=== PATIENT | female | born 1945 | race Caucasian/White ===

== ENCOUNTER 2017-07-24 16:59 | Emergency (ER) | payer MEDICARE, SELFPAY ==
[2017-07-24 17:32] VITALS: BP 136/76; PULSE 84; RESP 15; TEMP 37.1; O2SAT 97; BMI 33.5
[2017-07-24 18:05] VITALS: BP 139/60; PULSE 81; RESP 18; O2SAT 96
--- NOTE | 2017-07-24 18:37 | PC.NURSE ---
Attempt x1 for IV start. Unsuccessful
--- NOTE | 2017-07-24 18:41 | ED.GENADULT ---
HPI - General Adult General Chief complaint: Abdominal Pain Stated complaint: ABDOMINAL DISCOMFORT Time Seen by Provider: 07/24/17 18:15 Source: patient Mode of arrival: ambulatory Limitations: no limitations History of Present Illness HPI narrative: 72-year-old otherwise healthy female here for evaluation of generalized malaise and not feeling well. She states that approximately 10 days ago she had an episode of nausea and vomiting. She states that she took some nausea medication which only improved her symptoms slightly. She states that since then though symptoms have resolved however she did state that she then progressed and having constipation issues. She saw her primary provider who did some ?lab work ?and told the patient that her ?liver tests ?were elevated and put in a consult for have a right upper quadrant ultrasound. His right upper quadrant ultrasound was not scheduled for another couple weeks and the patient was still not feeling very well and so she was told by her primary doctor to come to the emergency department to have an ultrasound of her gallbladder. Related Data Home Medications Medication Instructions Recorded Confirmed hydrochlorothiazide 50 mg PO Q DAY #0 12/17/11 07/24/17 calcium carbonate-vitamin D3 1 cap PO QPM 06/30/17 07/24/17 [Calcium 600 + D(3)] calcium carbonate-vitamin D3 2 cap PO QDAY 06/30/17 07/24/17 [Calcium 600 + D(3)] cholecalciferol (vitamin D3) 2,000 unit PO QPM 06/30/17 07/24/17 [Vitamin D3] omeprazole 20 mg PO BID 06/30/17 07/24/17 simvastatin 20 mg PO QPM 06/30/17 07/24/17 sulfasalazine 2 tab PO BID 06/30/17 07/24/17 potassium chloride 10 meq PO DAILY 07/24/17 07/24/17 Allergies Allergy/AdvReac Type Severity Reaction Status Date / Time oxycodone AdvReac Verified 07/24/17 17:32 unknown antibiotic AdvReac Uncoded 07/24/17 17:32 Review of Systems Constitutional Denies chills, Denies fever(s), Denies lethargy and Denies weakness Cardiovascular Denies chest pain, Denies irregular heart rhythm, Denies lightheadedness, Denies palpitations, Denies dyspnea, Denies dyspnea on exertion and Denies orthopnea Respiratory Denies cough, Denies dyspnea, Denies dyspnea on exertion and Denies wheezing Gastrointestinal Gastrointestinal: Reports abdominal pain (One episode of left upper quadrant abdominal pain approximately 10 days ago), Denies bloating, Reports constipation, Denies diarrhea, Reports nausea (Has now resolved) and Reports vomiting (Has now resolved) Genitourinary Denies hematuria, Denies flank pain, Denies urinary incontinence and Denies urinary urgency Musculoskeletal Denies back pain, Denies muscle weakness, Denies numbness and Denies tingling Integumentary/Breasts Denies pruritus, Denies erythema, Denies rash and Denies wounds Neurologic Denies numbness, Denies tingling and Denies weakness Endocrine Denies palpitations Hematologic/Lymphatic Denies easy bruising Allergic/Immunologic Denies wheezing [facility] Medical History Colitis (Chronic) Edema of left lower extremity (Chronic) PENNY (obstructive sleep apnea) (Chronic) Osteoarthritis (Chronic) Surgical History History of total bilateral knee replacement (Resolved) Family History Mother Atrial fibrillation Social History Smoking Status: Never smoker Exam Initial Vital Signs Initial Vital Signs: Vital Signs Temperature 98.8 F 07/24/17 17:32 Pulse Rate 84 07/24/17 17:32 Respiratory Rate 15 07/24/17 17:32 Blood Pressure 136/76 H 07/24/17 17:32 Pulse Oximetry 97 07/24/17 17:32 Const General: cooperative and well developed Nutritional Appearance: well nourished Orientation: alert, awake, oriented x3 and not confused Resp Effort & Inspection: normal respiratory effort, able to speak in complete sentences, no respiratory distress and no use of accessory muscles Auscultation: clear to auscultation bilaterally, no rales, no rhonchi and no wheezes Cardio Rate: regular rate Rhythm: regular rhythm Heart Sounds: no click, no gallops, no murmurs and no rubs Pulses: normal peripheral pulses GI Inspection: non-distended Palpation: soft, no hepatosplenomegaly, No guarding, No pulsatile mass and No tender Auscultation: normal bowel sounds Back/Spine/Pelvis Back: No CVA tenderness Skin General: no rashes or lesions noted, No jaundice and No petechiae Neuro General: alert, oriented x3, gait normal and no focal motor deficits Speech: speech normal Extrem General: full ROM, no clubbing, cyanosis or edema, no pedal edema and no calf tenderness Course Orders Ordered: ED Orders 07/24/17 17:49 EKG-12 Lead Stat 07/24/17 18:44 Complete Blood Count AUTO DIFF Stat Comprehensive Metabolic Panel Stat Ictotest Urine Stat Lipase Stat 07/24/17 19:22 US abdomen complete Stat 07/24/17 19:35 Lactate (Lactic Acid) Stat 07/24/17 19:42 Troponin I Stat 07/24/17 20:31 CT chest abd pel w con Stat 07/24/17 21:00 Urinalysis and Microscopic Stat Discontinued Medications Sodium Chloride (Normal Saline 0.9%) 1,000 mls @ 1,000 mls/hr IV BOLUS ONE Stop: 07/24/17 21:33 Last Infusion: 07/24/17 22:25 Dose: 1,000 mls/hr Admin: 07/24/17 21:00 Dose: 1,000 mls/hr Vital Signs - 8 hr 07/24/17 20:09 07/24/17 21:55 Pulse Rate 82 80 Respiratory Rate 26 H 23 Blood Pressure [Left Arm] 107/71 157/89 H Pulse Oximetry 99 Medical Decision Making [facility] Narrative Medical decision making narrative: Patient with an elevated lipase however physical exam is not consistent with pancreatitis. Her right upper quadrant ultrasound shows a normal gallbladder however did reveal a mass in the pancreas and concerns for lesions in the liver. CT scan of the chest abdomen pelvis confirmed a mass around the head of the pancreas with what appears to be metastatic lesions to the liver and a left-sided pleural effusion. I discussed the case with Dr. Isaac who is on-call for the patient's primary care provider group. We discussed the indications for admission to the hospital this evening versus is obtaining biopsies in further workup as an outpatient. The patient is stable here in the ER. The decision after this conversation was to have the patient follow up as an outpatient. He states that the group will call the patient tomorrow for acute follow-up. I did discuss the CT scan and ultrasound findings with the patient and then her who came later. I did inform them of the concerns for pancreatic cancer. Informed them that we do need a biopsy to confirm this diagnosis however the CT scan and the ultrasound are very concerning for this diagnosis. She was given return precautions. She was given instructions with regard to symptoms. Patient and her expressed understanding and agreement with plan. Lab Data Result diagrams: 07/24/17 18:44 07/24/17 18:44 Lab Results 07/24/17 07/24/17 07/24/17 Range/Units 18:44 18:44 18:44 WBC 14.4 H (4.5-11.0) X10^3/uL RBC 3.90 L (4.0-5.2) X10^6/uL Hgb 11.6 L (12.0-16.0) g/dL Hct 35.5 L (36-46) % MCV 91.0 (80-100) fL MCH 29.6 (26-34) PG MCHC 32.5 (30-36) % RDW 15.1 H (11.6-14.8) % Plt Count 157 (150-400) X10^3/uL Neut % (Auto) 68.6 (50-75) % Lymph % (Auto) 16.1 L (25-40) % Wilbarger % (Auto) 12.0 (3-14) % Eos % (Auto) 2.4 (2-4) % Baso % (Auto) 0.9 (0-2) % Neut # (Auto) 9900 H (2141-6674) /uL Sodium 137 (137-145) mmol/L Potassium 3.6 (3.4-5.1) mmol/L Chloride 98 (98-107) mmol/L Carbon Dioxide 32 (22-32) mmol/L BUN 14 (7-17) mg/dL Creatinine 0.70 (0.52-1.04) mg/dL Estimated GFR > 60.0 (>60) mL/min BUN/Creatinine Ratio 20.0 (6-22) Glucose 125 H (80-110) mg/dL Lactate (0.7-2.1) mmol/L Calcium 10.2 (8.4-10.2) mg/dL Total Bilirubin 1.0 (0.2-1.3) mg/dL AST 89 H (14-36) IU/L ALT 37 (9-52) IU/L Alkaline Phosphatase 490 H (38-126) U/L CK-MB (CK-2) Troponin I (0.01-0.034) ng/mL Total Protein 6.8 (6.3-8.2) g/dL Albumin 3.4 L (3.5-5.0) g/dL Globulin 3.4 (1.7-4.1) g/dL Albumin/Globulin Ratio 1.0 (1.0-2.8) Lipase 706 H (23-300) U/L Urine Color Yellow Urine Appearance Clear Urine pH 7.0 (4.5-8.0) Ur Specific Hopkins 1.015 (1.000-1.035) Urine Protein 1+ H (Negative) Urine Glucose (UA) Negative (Normal) g/dL Urine Ketones Trace H (NEGATIVE) Urine Occult Blood Negative (Negative) Urine Nitrate Negative (Negative) Urine Bilirubin 1+ H (NEGATIVE) Urine Ictotest Positive H (Negative) Urine Urobilinogen 4.0 H (0.2) E.U./dL Ur Leukocyte Esterase Negative (NEGATIVE) Urine RBC None seen (0-5/HPF) Urine WBC None seen (0-5/HPF) Urine Bacteria None seen (None) Ur Culture Indicated? Cult not indicated Micro UA Comment Microscopic normal 07/24/17 07/24/17 Range/Units 19:35 19:42 WBC (4.5-11.0) X10^3/uL RBC (4.0-5.2) X10^6/uL Hgb (12.0-16.0) g/dL Hct (36-46) % MCV (80-100) fL MCH (26-34) PG MCHC (30-36) % RDW (11.6-14.8) % Plt Count (150-400) X10^3/uL Neut % (Auto) (50-75) % Lymph % (Auto) (25-40) % Wilbarger % (Auto) (3-14) % Eos % (Auto) (2-4) % Baso % (Auto) (0-2) % Neut # (Auto) (9286-0338) /uL Sodium (137-145) mmol/L Potassium (3.4-5.1) mmol/L Chloride (98-107) mmol/L Carbon Dioxide (22-32) mmol/L BUN (7-17) mg/dL Creatinine (0.52-1.04) mg/dL Estimated GFR (>60) mL/min BUN/Creatinine Ratio (6-22) Glucose (80-110) mg/dL Lactate 2.2 H (0.7-2.1) mmol/L Calcium (8.4-10.2) mg/dL Total Bilirubin (0.2-1.3) mg/dL AST (14-36) IU/L ALT (9-52) IU/L Alkaline Phosphatase (38-126) U/L CK-MB (CK-2) Cancelled Troponin I < 0.012 (0.01-0.034) ng/mL Total Protein (6.3-8.2) g/dL Albumin (3.5-5.0) g/dL Globulin (1.7-4.1) g/dL Albumin/Globulin Ratio (1.0-2.8) Lipase (23-300) U/L Urine Color Urine Appearance Urine pH (4.5-8.0) Ur Specific Hopkins (1.000-1.035) Urine Protein (Negative) Urine Glucose (UA) (Normal) g/dL Urine Ketones (NEGATIVE) Urine Occult Blood (Negative) Urine Nitrate (Negative) Urine Bilirubin (NEGATIVE) Urine Ictotest (Negative) Urine Urobilinogen (0.2) E.U./dL Ur Leukocyte Esterase (NEGATIVE) Urine RBC (0-5/HPF) Urine WBC (0-5/HPF) Urine Bacteria (None) Ur Culture Indicated? Micro UA Comment Imaging Data Abdominal ultrasound: Radiologist's impression: PROCEDURE: US ABDOMEN COMPLETE INDICATIONS: Right upper quadrant pain concern for gallbladder TECHNIQUE: Real-time scanning was performed of the abdominal and retroperitoneal organs, with image documentation. COMPARISON: None. FINDINGS: Liver: There are innumerable nodules throughout the liver. Gallbladder: No cholelithiasis. Normal gallbladder wall thickness. No pericholecystic fluid. Negative sonographic Hanson's sign. Biliary ducts: Intrahepatic bile ducts are non-dilated. Extrahepatic bile duct caliber measures 6 mm. Normal is 6-7 mm or less in diameter, or 10 mm or less post-cholecystectomy. Pancreas: There is a 3.3 x 1.9 x 2.7 cm hypoechoic pancreatic mass. Spleen: Spleen is normal in size and homogeneous in echotexture. Kidneys: Kidneys are normal in size and echotexture. Right kidney measures 13.2 cm long; left kidney measures 12.7 cm long. No hydronephrosis or nephrolithiasis. No solid masses. There is a 5.9 cm right renal cyst. Aorta: Obscured Iliacs: Obscured. IVC: Obscured. Miscellaneous: No free abdominal fluid. IMPRESSION: Pancreatic mass with innumerable hepatic nodules most consistent with metastatic pancreatic adenocarcinoma. Dictated by: Padilla Mathis M.D. on 07/24/2017 at 21:16 CT chest abdomen pelvis: Radiologist's impression: PROCEDURE: CT CHEST ABD PEL W CON INDICATIONS: US show pancreatic mass with liver findings TECHNIQUE: After the administration of intravenous contrast, 5 mm thick sections acquired from the lung apices to the symphysis. 2.5 mm thick coronal and sagittal reformats were acquired. Additional 7 mm thick coronal maximum intensity projection (MIP) reformats acquired through the lungs. Optional 10-minute delayed imaging may be performed from the kidneys to the bladder. For radiation dose reduction, the following was used: automated exposure control, adjustment of mA and/or kV according to patient size. COMPARISON: None. FINDINGS: Image quality: Excellent. CHEST: Lungs: Small left-sided pleural effusion with left basilar atelectasis/infiltrate. Otherwise the lungs are clear. Central and peripheral airways are patent where seen. Mediastinum: Heart size is normal. No pericardial effusion. Thoracic aorta and pulmonary arteries demonstrate normal size and enhancement. No mediastinal or hilar adenopathy. Esophagus is normal in caliber. Chest wall: No rib fractures. No axillary or supraclavicular adenopathy. Thyroid gland is normal. ABDOMEN: Solid organs: Innumerable masses throughout the liver. There is a 2.3 cm pancreatic body mass with dilatation of the pancreatic duct and atrophy of pancreatic parenchyma in the more proximal pancreatic tail. 1 cm hypodense splenic nodule. 2 cm right adrenal nodule. Left adrenal gland and kidney are normal. Large benign right renal cyst otherwise the right kidney is normal. Peritoneum and bowel: The stomach is decompressed causing a degree of wall thickening. No free fluid or air. Unenhanced bowel loops demonstrate normal wall thickness and caliber. Nodes and vessels: Prominent nahum hepatis lymph nodes. Aorta and inferior vena cava are normal in size and enhancement. Miscellaneous: No ventral hernias. PELVIS: Genitourinary: Bladder wall thickness is normal. Uterus is present. Miscellaneous: No inguinal hernias or adenopathy. Bones: Pelvic ring and hip joints appear intact. No vertebral compression fractures. There is a 13 mm Low-density in the inferior L5 vertebral body adjacent to marked degenerative change more consistent with a sequelae of degenerative change than with metastatic disease. . IMPRESSION: 1. Pancreatic body mass with atrophy of the pancreatic tail and dilatation of the pancreatic duct consistent with malignancy. Innumerable hepatic nodules. Consider ultrasound-guided liver biopsy. 2. Suspicious right renal and splenic nodules. 3. Prominent upper abdominal lymph nodes are also suspicious for metastatic disease. 4. Small left-sided pleural effusion with left basilar atelectasis or infiltrate. Dictated by: Padilla Mathis M.D. on 07/24/2017 at 21:21 Discharge Plan Departure Patient Disposition: Home, Self-Care Clinical Impression: Pancreatic mass Discharge Date/Time: 07/24/17 23:17 Interventions: ED Discharge Assessment Last Done: 07/24/17 23:17 Instructions: DI for Pancreaticobiliary Cancer Activity Restrictions/Additional Instructions: [facility] will contact you tomorrow to discuss further workup of the findings today. If he do not hear from them by noon please call the office. I discussed her case with Dr. Isaac. Return to the emergency department for any new or worsening symptoms Prescriptions: No Action hydrochlorothiazide 50 MG tablet 50 mg PO Q DAY Qty: 0 RF: 0 potassium chloride 10 mEq tablet extended release 10 meq PO DAILY RF: 0 sulfasalazine 500 mg Tablet 2 tab PO BID RF: 0 simvastatin 20 mg Tablet 20 mg PO QPM RF: 0 omeprazole 20 mg capsule,delayed release(DR/EC) 20 mg PO BID RF: 0 calcium carbonate-vitamin D3 [Calcium 600 + D(3)] 600 mg calcium- 200 unit Capsule 1 cap PO QPM RF: 0 calcium carbonate-vitamin D3 [Calcium 600 + D(3)] 600 mg calcium- 200 unit Capsule 2 cap PO QDAY RF: 0 cholecalciferol (vitamin D3) [Vitamin D3] 2,000 unit Capsule 2,000 unit PO QPM RF: 0
[2017-07-24 18:55] LABS: Add Manual Diff / Slide Review NO; Basophils Percent Auto 0.9 % (0-2); Eosinophils Percent Auto 2.4 % (2-4); Hematocrit 35.5 % (36-46); Hemoglobin 11.6 g/dL (12.0-16.0); Lymphocytes Percent Auto 16.1 % (25-40); Mean Corpuscular HGB Conc 32.5 % (30-36); Mean Corpuscular Hemoglobin 29.6 PG (26-34); Neutrophils Absolute Auto 9900 /uL (3000-5900); Neutrophils Percent Auto 68.6 % (50-75); Platelet Count 157 X10^3/uL (150-400); Red Cell Distribution Width 15.1 % (11.6-14.8); White Blood Cell Count 14.4 X10^3/uL (4.5-11.0)
[2017-07-24 19:05] LABS: Bacteria Urine None Seen; RBC Urine None Seen (0-5/HPF); WBC Urine None Seen (0-5/HPF)
[2017-07-24 19:08] LABS: Appearance Urine UA CLEAR; Bilirubin Urine UA 1+ (NEGATIVE); Color Urine UA YELLOW; Glucose Urine UA NEGATIVE (Normal); Ketones Urine UA TRACE (NEGATIVE); Leukocyte Esterase Urine UA NEGATIVE (NEGATIVE); Nitrite Urine UA Negative (Negative); Occult Blood Urine UA NEGATIVE (Negative); Protein Urine UA 1+ (Negative); Specific Gravity Urine UA 1.015 (1.000-1.035)
[2017-07-24 19:09] LABS: Alanine Aminotransferase 37 IU/L (9-52); Albumin 3.4 g/dL (3.5-5.0); Alkaline Phosphatase 490 U/L (38-126); Aspartate Aminotransferase 89 IU/L (14-36); Blood Urea Nitrogen 14 mg/dL (7-17); Calcium 10.2 mg/dL (8.4-10.2); Carbon Dioxide 32 mmol/L (22-32); Chloride 98 mmol/L (98-107); Estimated Glomerular Filt Rate > 60.0 mL/min (>60); Globulin 3.4 g/dL (1.7-4.1); Glucose 125 mg/dL (80-110); Lipase 706 U/L (23-300); Potassium 3.6 mmol/L (3.4-5.1); Sodium 137 mmol/L (137-145); Total Protein 6.8 g/dL (6.3-8.2)
[2017-07-24 19:12] LABS: HEMOLYSIS 79 (0-50)
[2017-07-24 19:22] LABS: Culture Indicated Urine Cult Not Indicated; Ictotest Urine Positive (Negative); Urine Comments Microscopic Normal
--- NOTE | 2017-07-24 19:22 | DI.US.S_ITS ---
PROCEDURE: US ABDOMEN COMPLETE INDICATIONS: Right upper quadrant pain concern for gallbladder TECHNIQUE: Real-time scanning was performed of the abdominal and retroperitoneal organs, with image documentation. COMPARISON: None. FINDINGS: Liver: There are innumerable nodules throughout the liver. Gallbladder: No cholelithiasis. Normal gallbladder wall thickness. No pericholecystic fluid. Negative sonographic Hanson's sign. Biliary ducts: Intrahepatic bile ducts are non-dilated. Extrahepatic bile duct caliber measures 6 mm. Normal is 6-7 mm or less in diameter, or 10 mm or less post-cholecystectomy. Pancreas: There is a 3.3 x 1.9 x 2.7 cm hypoechoic pancreatic mass. Spleen: Spleen is normal in size and homogeneous in echotexture. Kidneys: Kidneys are normal in size and echotexture. Right kidney measures 13.2 cm long; left kidney measures 12.7 cm long. No hydronephrosis or nephrolithiasis. No solid masses. There is a 5.9 cm right renal cyst. Aorta: Obscured Iliacs: Obscured. IVC: Obscured. Miscellaneous: No free abdominal fluid. IMPRESSION: Pancreatic mass with innumerable hepatic nodules most consistent with metastatic pancreatic adenocarcinoma. Dictated by: Padilla Mathis M.D. on 07/24/2017 at 21:16 Approved by: Padilla Mathis M.D. on 07/24/2017 at 21:19
[2017-07-24 20:00] LABS: Lactate (Lactic Acid) 2.2 mmol/L (0.7-2.1)
[2017-07-24 20:09] VITALS: BP 107/71; PULSE 82; RESP 26
[2017-07-24 20:13] LABS: Troponin I < 0.012 ng/mL (0.01-0.034)
--- NOTE | 2017-07-24 20:31 | DI.CT.S_ITS ---
PROCEDURE: CT CHEST ABD PEL W CON INDICATIONS: US show pancreatic mass with liver findings TECHNIQUE: After the administration of intravenous contrast, 5 mm thick sections acquired from the lung apices to the symphysis. 2.5 mm thick coronal and sagittal reformats were acquired. Additional 7 mm thick coronal maximum intensity projection (MIP) reformats acquired through the lungs. Optional 10-minute delayed imaging may be performed from the kidneys to the bladder. For radiation dose reduction, the following was used: automated exposure control, adjustment of mA and/or kV according to patient size. COMPARISON: None. FINDINGS: Image quality: Excellent. CHEST: Lungs: Small left-sided pleural effusion with left basilar atelectasis/infiltrate. Otherwise the lungs are clear. Central and peripheral airways are patent where seen. Mediastinum: Heart size is normal. No pericardial effusion. Thoracic aorta and pulmonary arteries demonstrate normal size and enhancement. No mediastinal or hilar adenopathy. Esophagus is normal in caliber. Chest wall: No rib fractures. No axillary or supraclavicular adenopathy. Thyroid gland is normal. ABDOMEN: Solid organs: Innumerable masses throughout the liver. There is a 2.3 cm pancreatic body mass with dilatation of the pancreatic duct and atrophy of pancreatic parenchyma in the more proximal pancreatic tail. 1 cm hypodense splenic nodule. 2 cm right adrenal nodule. Left adrenal gland and kidney are normal. Large benign right renal cyst otherwise the right kidney is normal. Peritoneum and bowel: The stomach is decompressed causing a degree of wall thickening. No free fluid or air. Unenhanced bowel loops demonstrate normal wall thickness and caliber. Nodes and vessels: Prominent nahum hepatis lymph nodes. Aorta and inferior vena cava are normal in size and enhancement. Miscellaneous: No ventral hernias. PELVIS: Genitourinary: Bladder wall thickness is normal. Uterus is present. Miscellaneous: No inguinal hernias or adenopathy. Bones: Pelvic ring and hip joints appear intact. No vertebral compression fractures. There is a 13 mm Low-density in the inferior L5 vertebral body adjacent to marked degenerative change more consistent with a sequelae of degenerative change than with metastatic disease. . IMPRESSION: 1. Pancreatic body mass with atrophy of the pancreatic tail and dilatation of the pancreatic duct consistent with malignancy. Innumerable hepatic nodules. Consider ultrasound-guided liver biopsy. 2. Suspicious right renal and splenic nodules. 3. Prominent upper abdominal lymph nodes are also suspicious for metastatic disease. 4. Small left-sided pleural effusion with left basilar atelectasis or infiltrate. Dictated by: Padilla Mathis M.D. on 07/24/2017 at 21:21 Approved by: aPdilla Mathis M.D. on 07/24/2017 at 21:32
[2017-07-24] MEDS: SODIUM CHLORIDE 0.9% 1,000 ML 1000 ML IV (21:00)
[2017-07-24 21:55] VITALS: BP 157/89; PULSE 80; RESP 23; O2SAT 99
[2017-07-24 23:43] LABS: Reflexed Lactate in 2 Hours Y
== END 2017-07-24 23:17 | disposition home or self-care (01) ==
PROVIDERS: Internal Medicine; Emergency Provider Emergency Medicine; Family Provider Nurse Practitioner Family; PCP Nurse Practitioner Family
DX: K86.9 Disease of pancreas, unspecified (principal)
CPT/HCPCS: 36415; 71260; 74177; 76700; 80053; 81001; 82553; 83605; 83690; 84484; 85025; 93005; 96360; 99283; 99285; Q9967

== ENCOUNTER → 2017-07-28 09:44 | Outpatient (CLI) | payer MEDICARE, SELFPAY ==
[2017-07-28 10:39] LABS: INR 1.4 (0.9-1.3); Prothrombin Time 15.2 SECONDS (10.1-12.7)
[2017-07-28 10:52] LABS: Add Manual Diff / Slide Review NO; Basophils Percent Auto 0.5 % (0-2); Eosinophils Percent Auto 1.3 % (2-4); Hematocrit 39.1 % (36-46); Hemoglobin 12.9 g/dL (12.0-16.0); Lymphocytes Percent Auto 11.3 % (25-40); Mean Corpuscular HGB Conc 33.1 % (30-36); Mean Corpuscular Hemoglobin 29.9 PG (26-34); Mean Corpuscular Volume 90.4 fL (80-100); Monocytes Percent Auto 8.9 % (3-14); Neutrophils Absolute Auto 11300 /uL (3000-5900); Platelet Count 198 X10^3/uL (150-400); Red Blood Cell Count 4.32 X10^6/uL (4.0-5.2); White Blood Cell Count 14.5 X10^3/uL (4.5-11.0)
[2017-07-28 11:42] LABS: BUN Creatinine Ratio 16.3 (6-22); Blood Urea Nitrogen 13 mg/dL (7-17); Calcium 11.4 mg/dL (8.4-10.2); Carbon Dioxide 33 mmol/L (22-32); Chloride 98 mmol/L (98-107); Estimated Glomerular Filt Rate > 60.0 mL/min (>60); Glucose 153 mg/dL (80-110); HEMOLYSIS < 15 (0-50); Potassium 3.5 mmol/L (3.4-5.1); Sodium 138 mmol/L (137-145)
== END ==
PROVIDERS: Family Provider Nurse Practitioner Family; PCP Nurse Practitioner Family; Visit Provider Nurse Practitioner Family
DX: C25.9 Malignant neoplasm of pancreas, unspecified (principal)
CPT/HCPCS: 36415; 80048; 85025; 85610

== ENCOUNTER 2017-07-31 07:29 | Day surgery (SDC) | payer MEDICARE, SELFPAY ==
[2017-07-31] VITALS (12 sets, daily range): BP systolic 86–140; BP diastolic 42–86; PULSE 67–114; RESP 15–18; TEMP 36.2–37.1; O2SAT 93–98
--- NOTE | 2017-07-31 | DI.CT.S_ITS ---
PROCEDURE: CT BIOPSY LIVER Sedation analgesia for 17 minutes. INDICATIONS: 72 year-old female with pancreatic mass lesion, as well as multiple liver metastases. TECHNIQUE: The indications, alternatives, benefits, risks, and possible complications of the procedure were communicated to the patient. Informed written consent from the patient was obtained and placed in the chart. Continuous EKG and hemodynamic monitoring was started by trained personnel. The patient was brought to the CT suite and credit risk modeler spiral CT imaging was performed with localization grid. The appropriate site for percutaneous access to the biopsy target was marked, was prepped and draped sterilely, and was infused with local anaesthesia. Under CT guidance, a core biopsy trocar and needle set was advanced to the biopsy target, and specimen(s) were obtained. The trocar and needle were then removed, and the patient was sent for post-procedure monitoring. COMPARISON: [facility], CT, CT CHEST ABD PEL W CON, 07/24/2017, 20:59. FINDINGS: Biopsy site: Subxiphoid anterior left hepatic lobe. Needle: 20 gauge biopsy needle with introducer trocar. Number of passes: 4 Medications: 1% lidocaine for local anaesthesia. IV Fentanyl and Versed for conscious sedation for 17 minutes (see nursing record). Complications: None immediate. IMPRESSION: Successful CT-guided biopsy of anterior left hepatic lobe lesion. Dictated by: Cong Petty M.D. on 07/31/2017 at 9:52 Approved by: Cong Petty M.D. on 07/31/2017 at 9:53
--- NOTE | 2017-07-31 08:50 | SUR.PREOP ---
IV STARTED PER [facility]REG[facility] FORM IR [facility]REG[facility]IO NOTIFIED OF PTS ORTHOSTATIC VS. PT UP TO BR TO VOID PRIOR TO TRANSPORT TO IR .
--- NOTE | 2017-07-31 09:46 | SUR.PHASEII ---
PT RETURNED FROM DI. REPORT RECEIVED FROM DI NURSE. PT IN STABLE CONDITION, VSS. IV SITE CLEAR AND INFUSING WITHOUT DIFFICULTLY. PT LAYING SUPINE WITH SAND BAG IN PLACE OVER BIOPSY SITE. BANDAID OBSERVED TO BE C/D/I. PT DENIES ANY PAIN OR DISCOMFORT AT THIS TIME. BED IN LOWEST POSITION AND CALL LIGHT GIVEN TO PT. PT TOLERATING SIPS OF WATER WITHOUT ANY DIFFICULTLY. PT APPEARS COMFORTABLE AT THIS TIME.
--- NOTE | 2017-07-31 10:57 | SUR.PHASEII ---
PT REMAINS STABLE AT THIS TIME, VSS. PT ALERT AND TALKING TO RN. PT REMAINS SUPINE AND IN BED WITH SANDBAG TO BIOPSY SITE. PT DENIES ANY PAIN/DISCOMFORT AT THIS TIME. IV SITE CLEAR AND INFUSING WITHOUT DIFFICULTLY. BANDAID TO BIOPSY SITE REMAINS C/D/I. PT UP TO USE BEDSIDE COMMODE WITH ASSISTANCE FROM FOOD SERVICES DIRECTOR. PT TOLERATED WELL. PT ABLE TO VOID X1. PT ASSISTED BACK INTO BED. BED IN LOWEST POSITION AND CALL LIGHT GIVEN TO PT. PT APPEARS COMFORTABLE AT THIS TIME.
[2017-07-31 13:13] LABS: Hematocrit 35.2 % (36-46)
== END 2017-07-31 13:32 ==
LOC: OR 07:30
PROVIDERS: Radiology Diagnostic Radiology; Family Provider Nurse Practitioner Family; PCP Nurse Practitioner Family; Visit Provider Nurse Practitioner Family
PROC: BF25ZZZ Computerized Tomography (CT Scan) of Liver (ICD-10-PCS; CPT 47000; principal; 2017-07-31 08:30)
DX: R11.0 Nausea (principal); R53.1 Weakness; R53.83 Other fatigue; K76.9 Liver disease, unspecified
CPT/HCPCS: 47000; 77012; 85014; 88305; 88341; 88342

== ENCOUNTER 2017-08-01 09:10 | Emergency (ER) | payer MEDICARE, SELFPAY ==
[2017-08-01] VITALS (9 sets, daily range): BP systolic 105–143; BP diastolic 47–76; PULSE 71–91; RESP 16–22; TEMP 36.4; O2SAT 92–100; BMI 32.5
[2017-08-01 10:17] LABS: Add Manual Diff / Slide Review NO; Basophils Percent Auto 0.9 % (0-2); Eosinophils Percent Auto 0.9 % (2-4); Hematocrit 34.9 % (36-46); Hemoglobin 11.2 g/dL (12.0-16.0); Lymphocytes Percent Auto 9.8 % (25-40); Mean Corpuscular HGB Conc 32.2 % (30-36); Mean Corpuscular Hemoglobin 29.5 PG (26-34); Mean Corpuscular Volume 91.6 fL (80-100); Neutrophils Absolute Auto 11400 /uL (3000-5900); Neutrophils Percent Auto 76.4 % (50-75); Platelet Count 176 X10^3/uL (150-400); Red Cell Distribution Width 15.8 % (11.6-14.8)
[2017-08-01] MEDS: SODIUM CHLORIDE 0.9% 1,000 ML 1000 ML IV (10:20)
[2017-08-01] MEDS: fentaNYL 100 MCG/2 ML INJ 50 MCG IV (10:21)
[2017-08-01] MEDS: ONDANSETRON 4 MG/2 ML INJ IV (10:22)
[2017-08-01 10:28] LABS: BUN Creatinine Ratio 18.8 (6-22); Blood Urea Nitrogen 15 mg/dL (7-17); Carbon Dioxide 35 mmol/L (22-32); Chloride 99 mmol/L (98-107); Estimated Glomerular Filt Rate > 60.0 mL/min (>60); Glucose 109 mg/dL (80-110); HEMOLYSIS < 15 (0-50); Potassium 3.6 mmol/L (3.4-5.1); Sodium 137 mmol/L (137-145)
[2017-08-01 10:40] LABS: Troponin I < 0.012 ng/mL (0.01-0.034)
--- NOTE | 2017-08-01 11:30 | PC.NURSE ---
Report from Nora MCCALL patient on BSC with ACID PAINTER assistance at present.
--- NOTE | 2017-08-01 11:34 | DI.RAD.S_ITS ---
PROCEDURE: XR ACUTE ABDOMEN SERIES INDICATIONS: Abdominal pain, liver bx yesterday TECHNIQUE: One view chest and two views of the abdomen were acquired. COMPARISON: [facility], CT, CT BIOPSY LIVER, 07/31/2017, 8:32. [facility], CR, CHEST 2 VIEW, 12/17/2016, 15:18. FINDINGS: Surgical changes and devices: None.left lung base which could represent atelectasis, aspiration or pneumonia. Chest: Increased opacification noted in the Heart size is normal. No pleural effusions. No pneumoperitoneum. Abdomen: Bowel gas pattern is normal. No suspicious calcifications. Visualized solid organ contours appear normal. Bones: No suspicious bony lesions. IMPRESSION: Left basilar opacification compatible atelectasis, aspiration or pneumonia. Dictated by: Carin Morales MD, PhD on 08/01/2017 at 11:51 Approved by: Carin Morales MD, PhD on 08/01/2017 at 11:53
--- NOTE | 2017-08-01 12:04 | PC.NURSE ---
pt. positioned for comfort. blankets provided. IV assessed- patent and without irritation at the site. 250 cc NS infused at present.
--- NOTE | 2017-08-01 12:09 | ED_ITS ---
HPI - Weakness General Chief complaint: Fall Stated complaint: LIVER BIOPSY YESTERDAY,FELL THIS MORNING Time Seen by Provider: 08/01/17 09:18 Source: patient and family Mode of arrival: ambulatory Limitations: no limitations History of Present Illness HPI Narrative: 72-year-old female with recently diagnosed pancreatic head tumor presents to the emergency department with a near syncopal episode today and severe left shoulder pain. She had felt weak in the bathroom and lowered herself to the floor. She denies any injury. She states she had a liver biopsy yesterday and all went well. She denies nausea, vomiting or diarrhea but states she feels generally weak. She has not had much to eat or drink. She denies any abdominal pain. MD Complaint: generalized weakness Onset (ago): hour(s) Duration: constant Location: generalized Migration: none and ascending Relieving factors: none Exacerbating factors: none Related Data Home Medications Medication Instructions Recorded Confirmed hydrochlorothiazide 50 mg PO Q DAY #0 12/17/11 07/24/17 calcium carbonate-vitamin D3 1 cap PO QPM 06/30/17 07/24/17 [Calcium 600 + D(3)] calcium carbonate-vitamin D3 2 cap PO QDAY 06/30/17 07/24/17 [Calcium 600 + D(3)] cholecalciferol (vitamin D3) 2,000 unit PO QPM 06/30/17 07/24/17 [Vitamin D3] omeprazole 20 mg PO BID 06/30/17 07/24/17 simvastatin 20 mg PO QPM 06/30/17 07/24/17 sulfasalazine 2 tab PO BID 06/30/17 07/24/17 potassium chloride 10 meq PO DAILY 07/24/17 07/24/17 Previous Rx's Medication Instructions Recorded amoxicillin-pot clavulanate 1 tab PO BID #20 tab 08/01/17 [Augmentin] hydrocodone-acetaminophen 1 tab PO Q4-6H PRN #14 tab 08/01/17 methocarbamol [Robaxin] 500 mg PO Q6H PRN #14 tab 08/01/17 Allergies Allergy/AdvReac Type Severity Reaction Status Date / Time oxycodone AdvReac Verified 07/24/17 17:32 unknown antibiotic AdvReac Uncoded 07/24/17 17:32 Review of Systems Review of Systems All systems reviewed & are unremarkable except as noted in HPI and below Constitutional Denies chills, Denies fever(s), Denies lethargy and Reports weakness Eyes Denies change in vision, Denies eye discharge, Denies irritation and Denies loss of vision Cardiovascular Denies chest pain, Denies irregular heart rhythm, Denies lightheadedness, Denies palpitations, Denies dyspnea, Denies dyspnea on exertion and Denies orthopnea Respiratory Denies cough, Denies dyspnea, Denies dyspnea on exertion and Denies wheezing Gastrointestinal Gastrointestinal: Denies abdominal pain, Denies change in bowel habits, Denies diarrhea, Denies nausea and Denies vomiting Genitourinary Denies hematuria, Denies flank pain, Denies urinary incontinence and Denies urinary urgency Musculoskeletal Denies back pain, Denies muscle weakness, Denies numbness and Denies tingling Integumentary/Breasts Denies pruritus, Denies erythema, Denies rash and Denies wounds Neurologic Denies loss of vision, Denies numbness, Denies tingling and Reports weakness Endocrine Denies palpitations Allergic/Immunologic Denies wheezing [facility] Social History Smoking Status: Never smoker Exam Narrative Exam Narrative: Pleasant 72-year-old female appears stated age. She is in mild distress Initial Vital Signs Initial Vital Signs: Vital Signs Temperature 97.5 F L 08/01/17 09:20 Pulse Rate 75 08/01/17 09:20 Respiratory Rate 20 08/01/17 09:20 Blood Pressure 109/76 08/01/17 09:20 Pulse Oximetry 98 08/01/17 09:20 Const General: cooperative, well developed and in distress Nutritional Appearance: well nourished Orientation: alert, awake, oriented x3 and not confused [facility] Head: normocephalic and atraumatic Ears: external ears normal and TM's normal bilaterally Nose: external nose normal and No nasal discharge Face and sinus: sinuses nontender, face symmetric, no sinus tenderness and No dry mucous membranes Mouth: oral mucosae normal and moist mucous membranes Teeth and gingiva: dentition normal Throat: tonsils normal and uvula midline Eyes General: appearance normal, both eyes and all related structures Eyelids: eyelids normal Conjunctivae: conjunctivae normal Sclera: sclerae normal Pupils: PERRL EOM: EOM intact bilaterally Neck Neck: normal visual inspection, trachea midline, No lymphadenopathy, No midline deformity and No JVD Lymphatic: No lymphedema Chest Chest: normal inspection of the chest Resp Effort & Inspection: normal respiratory effort, able to speak in complete sentences, no respiratory distress and no use of accessory muscles Auscultation: clear to auscultation bilaterally, no rales, no rhonchi and no wheezes Cardio Rate: regular rate Rhythm: regular rhythm Heart Sounds: no click, no gallops, no murmurs and no rubs Pulses: normal peripheral pulses GI Inspection: non-distended Palpation: soft, no hepatosplenomegaly, No guarding, No pulsatile mass and No tender Auscultation: normal bowel sounds Other: Biopsy site is clean, dry and intact. Nontender Back/Spine/Pelvis Back: No CVA tenderness Cervical Spine: cervical ROM normal and No pain with cervical ROM Thoracic/Lumbar Spine: thoracic and lumbar spine normal to inspection Skin General: no rashes or lesions noted, No jaundice and No petechiae Neuro General: alert, oriented x3, gait normal and no focal motor deficits Speech: speech normal Extrem Left upper extremity: full ROM and shoulder/upper arm (Posterior shoulder tender with thorax or upper extremity motion) Course Orders Ordered: ED Orders 08/01/17 10:00 Basic Metabolic Panel Stat Complete Blood Count AUTO DIFF Stat Troponin I Stat 08/01/17 11:34 XR acute abdomen series Stat 08/01/17 14:37 CT abdomen pelvis w con Stat Discontinued Medications Fentanyl (Sublimaze) 50 mcg IV NOW ONE Stop: 08/01/17 10:09 Last Admin: 08/01/17 10:21 Dose: 50 mcg Sodium Chloride (Normal Saline 0.9%) 1,000 mls @ 1,000 mls/hr IV BOLUS ONE Stop: 08/01/17 10:32 Last Infusion: 08/01/17 14:44 Dose: 1,000 mls/hr Admin: 08/01/17 10:20 Dose: 1,000 mls/hr Ondansetron HCl (Zofran) 4 mg IV NOW ONE Stop: 08/01/17 10:09 Last Admin: 08/01/17 10:22 Dose: 4 mg Reevaluation(s) Reevaluation #1: patient continues to deny dizziness, SOB, CP. She states her weakness improved after fluids, now she is just hungry. Time: 15:48 Vital Signs - 8 hr 08/01/17 09:20 08/01/17 10:30 08/01/17 11:00 Temperature 97.5 F L Pulse Rate 75 74 74 Pulse Rate [Orthostatic Lying] Pulse Rate [Orthostatic Sitting] Pulse Rate [Orthostatic Standing] Respiratory Rate 20 16 17 Blood Pressure 109/76 Blood Pressure [Left Arm] 141/53 H 143/60 H Blood Pressure [Orthostatic Lying] Blood Pressure [Orthostatic Sitting] Blood Pressure [Orthostatic Standing] Pulse Oximetry 98 98 99 08/01/17 12:00 08/01/17 12:43 08/01/17 14:04 Temperature Pulse Rate 71 73 Pulse Rate [Orthostatic Lying] 77 Pulse Rate [Orthostatic Sitting] 84 Pulse Rate [Orthostatic Standing] 91 H Respiratory Rate 22 21 Blood Pressure Blood Pressure [Left Arm] 128/52 H 122/53 H Blood Pressure [Orthostatic Lying] 132/64 H Blood Pressure [Orthostatic Sitting] 129/64 H Blood Pressure [Orthostatic Standing] 105/58 L Pulse Oximetry 97 100 08/01/17 14:30 08/01/17 15:10 Temperature Pulse Rate 72 79 Pulse Rate [Orthostatic Lying] Pulse Rate [Orthostatic Sitting] Pulse Rate [Orthostatic Standing] Respiratory Rate 18 21 Blood Pressure Blood Pressure [Left Arm] 126/60 H 131/75 H Blood Pressure [Orthostatic Lying] Blood Pressure [Orthostatic Sitting] Blood Pressure [Orthostatic Standing] Pulse Oximetry 92 95 MDM - Weakness Differential Diagnosis Differential diagnosis: Likely anemia, hypoglycemia, sepsis and dehydration Medical Records Attestation: I reviewed the patient's medical records. Lab Data Attestation: I reviewed the patient's lab results. Result diagrams: 08/01/17 10:00 08/01/17 10:00 Lab Results 08/01/17 08/01/17 Range/Units 10:00 10:00 WBC 15.0 H (4.5-11.0) X10^3/uL RBC 3.80 L (4.0-5.2) X10^6/uL Hgb 11.2 L (12.0-16.0) g/dL Hct 34.9 L (36-46) % MCV 91.6 (80-100) fL MCH 29.5 (26-34) PG MCHC 32.2 (30-36) % RDW 15.8 H (11.6-14.8) % Plt Count 176 (150-400) X10^3/uL Neut % (Auto) 76.4 H (50-75) % Lymph % (Auto) 9.8 L (25-40) % [place] % (Auto) 12.0 (3-14) % Eos % (Auto) 0.9 L (2-4) % Baso % (Auto) 0.9 (0-2) % Neut # (Auto) 22864 H (2579-1077) /uL Sodium 137 (137-145) mmol/L Potassium 3.6 (3.4-5.1) mmol/L Chloride 99 (98-107) mmol/L Carbon Dioxide 35 H (22-32) mmol/L BUN 15 (7-17) mg/dL Creatinine 0.80 (0.52-1.04) mg/dL Estimated GFR > 60.0 (>60) mL/min BUN/Creatinine Ratio 18.8 (6-22) Glucose 109 (80-110) mg/dL Calcium 10.0 (8.4-10.2) mg/dL Troponin I < 0.012 (0.01-0.034) ng/mL Imaging Data CT scan - abdomen: Radiologist's impression: PROCEDURE: CT ABDOMEN PELVIS W CON INDICATIONS: 72 year-old female with left shoulder pain and orthostatic hypotension and near syncope, status post CT guided liver biopsy yesterday. TECHNIQUE: After the administration of intravenous contrast, 5 mm thick sections acquired from the diaphragm to the symphysis. 5 mm coronal and sagittal reformats were acquired. For radiation dose reduction, the following was used: automated exposure control, adjustment of mA and/or kV according to patient size. COMPARISON: [facility], CT, CT BIOPSY LIVER, 07/31/2017, 8:32. [facility], CT, CT CHEST ABD PEL W CON, 07/24/2017, 20:59. FINDINGS: Image quality: Excellent. ABDOMEN: Lung bases: Lung bases are clear. Small left basal pleural effusion is unchanged. Heart size is normal. Solid organs: Liver is normal in size, with numerous hypoenhancing metastases not significantly changed. Gallbladder wall thickness is normal. Biliary system is non dilated. Pancreas again demonstrates an ill-defined mass in the body, with segmental atrophy of the pancreatic tail as before. Spleen is normal in size, with 8 mm solitary hypodense lesion unchanged. 2.0 cm right adrenal nodule is unchanged. Kidneys demonstrate normal size and symmetric enhancement, without hydronephrosis. 6.6 cm lateral right renal cortical simple cyst is again noted. Peritoneum and bowel: Bowel loops demonstrate normal wall thickness and caliber. There is trace nonhemorrhagic free pelvic fluid, measuring 6.9 Hounsfield units in density. Nodes and vessels: No retroperitoneal or mesenteric adenopathy by size criteria. Several prominent kim-portal lymph nodes are unchanged. Aorta and inferior vena cava are normal in size, with mild aortic atherosclerosis. Miscellaneous: No ventral hernias. PELVIS: Genitourinary: Bladder wall thickness is normal. Uterus and ovaries are normal in size. Left anterior uterine body 2.5 cm fibroid is again noted, as well as right posterior uterine body 1.4 cm submucosal fibroid. Miscellaneous: No inguinal hernias or adenopathy. Bones: No suspicious bony lesions. No vertebral body compression fractures. IMPRESSION: 1. No intra-abdominal hemorrhage status post anterior left hepatic lobe biopsy. 2. Pancreatic body mass again noted, with numerous hepatic hypovascular metastases. Several prominent kim-portal lymph nodes as before, also worrisome for metastases. 3. 2 cm indeterminate right adrenal nodule is unchanged, as well as solitary small hypodense splenic lesion. 4. 6.6 cm lateral right renal cortical simple cyst as before. 5. Several uterine fibroids again noted. 6. Persistent small left basal pleural effusion is of uncertain etiology. Dictated by: Cong Petty M.D. on 08/01/2017 at 15:09 Approved by: Cong Petty M.D. on 08/01/2017 at 15:21 MDM Narrative Medical decision making narrative: considered musculoskeletal pain, referred pain from surgery (liver bleed etc), cardiac etiology, vs. other. Patient has normal labs and a CT scan demonstrating no bleed as a consequence of her procedure. Her pain is completely reproducible with palpation and range of motion of the left shoulder. She denies chest pain or shortness of breath. She is not dizzy nor weak or lightheaded. Discharge Plan Departure Patient Disposition: Home, Self-Care Clinical Impression: Pneumonia Instructions: DI for Pneumonia -- Adult Activity Restrictions/Additional Instructions: *You have been diagnosed with [ left lower lobe pneumonia and left shoulder pain ] *What to do: *Take medications as directed *Follow up with your primary care provider in 2-3 days *Return to ER if you should have =any new, worsening or concerning symptoms Prescriptions: New amoxicillin-pot clavulanate [Augmentin] 875-125 mg tablet 1 tab PO BID Qty: 20 RF: 0 methocarbamol [Robaxin] 500 mg tablet 500 mg PO Q6H PRN (Reason: muscle spasm) Qty: 14 RF: 0 hydrocodone-acetaminophen 5-325 mg tablet 1 tab PO Q4-6H PRN (Reason: pain) Qty: 14 RF: 0 No Action hydrochlorothiazide 50 MG tablet 50 mg PO Q DAY Qty: 0 RF: 0 potassium chloride 10 mEq tablet extended release 10 meq PO DAILY RF: 0 sulfasalazine 500 mg Tablet 2 tab PO BID RF: 0 simvastatin 20 mg Tablet 20 mg PO QPM RF: 0 omeprazole 20 mg capsule,delayed release(DR/EC) 20 mg PO BID RF: 0 calcium carbonate-vitamin D3 [Calcium 600 + D(3)] 600 mg calcium- 200 unit Capsule 1 cap PO QPM RF: 0 calcium carbonate-vitamin D3 [Calcium 600 + D(3)] 600 mg calcium- 200 unit Capsule 2 cap PO QDAY RF: 0 cholecalciferol (vitamin D3) [Vitamin D3] 2,000 unit Capsule 2,000 unit PO QPM RF: 0
--- NOTE | 2017-08-01 12:34 | PC.NURSE ---
Patient also reports left shoulder pain. Had a liver biopsy two days ago.
--- NOTE | 2017-08-01 14:06 | PC.NURSE ---
Patient able to stand easily with no dizziness or light headedness. Pain in left shoulder persists.
--- NOTE | 2017-08-01 14:37 | DI.CT.S_ITS ---
PROCEDURE: CT ABDOMEN PELVIS W CON INDICATIONS: 72 year-old female with left shoulder pain and orthostatic hypotension and near syncope, status post CT guided liver biopsy yesterday. TECHNIQUE: After the administration of intravenous contrast, 5 mm thick sections acquired from the diaphragm to the symphysis. 5 mm coronal and sagittal reformats were acquired. For radiation dose reduction, the following was used: automated exposure control, adjustment of mA and/or kV according to patient size. COMPARISON: [facility], CT, CT BIOPSY LIVER, 07/31/2017, 8:32. [facility], CT, CT CHEST ABD PEL W CON, 07/24/2017, 20:59. FINDINGS: Image quality: Excellent. ABDOMEN: Lung bases: Lung bases are clear. Small left basal pleural effusion is unchanged. Heart size is normal. Solid organs: Liver is normal in size, with numerous hypoenhancing metastases not significantly changed. Gallbladder wall thickness is normal. Biliary system is non dilated. Pancreas again demonstrates an ill-defined mass in the body, with segmental atrophy of the pancreatic tail as before. Spleen is normal in size, with 8 mm solitary hypodense lesion unchanged. 2.0 cm right adrenal nodule is unchanged. Kidneys demonstrate normal size and symmetric enhancement, without hydronephrosis. 6.6 cm lateral right renal cortical simple cyst is again noted. Peritoneum and bowel: Bowel loops demonstrate normal wall thickness and caliber. There is trace nonhemorrhagic free pelvic fluid, measuring 6.9 Hounsfield units in density. Nodes and vessels: No retroperitoneal or mesenteric adenopathy by size criteria. Several prominent kim-portal lymph nodes are unchanged. Aorta and inferior vena cava are normal in size, with mild aortic atherosclerosis. Miscellaneous: No ventral hernias. PELVIS: Genitourinary: Bladder wall thickness is normal. Uterus and ovaries are normal in size. Left anterior uterine body 2.5 cm fibroid is again noted, as well as right posterior uterine body 1.4 cm submucosal fibroid. Miscellaneous: No inguinal hernias or adenopathy. Bones: No suspicious bony lesions. No vertebral body compression fractures. IMPRESSION: 1. No intra-abdominal hemorrhage status post anterior left hepatic lobe biopsy. 2. Pancreatic body mass again noted, with numerous hepatic hypovascular metastases. Several prominent kim-portal lymph nodes as before, also worrisome for metastases. 3. 2 cm indeterminate right adrenal nodule is unchanged, as well as solitary small hypodense splenic lesion. 4. 6.6 cm lateral right renal cortical simple cyst as before. 5. Several uterine fibroids again noted. 6. Persistent small left basal pleural effusion is of uncertain etiology. Dictated by: Cong Petty M.D. on 08/01/2017 at 15:09 Approved by: Cong Petty M.D. on 08/01/2017 at 15:21
--- NOTE | 2017-08-01 14:46 | PC.NURSE ---
1400 patient assisted back to bed from [facility]. denies feeling faint, only c/o pain. ED provider will discuss will discuss with tashi love
== END 2017-08-01 15:50 | disposition home or self-care (01) ==
PROVIDERS: Emergency Provider Emergency Medicine; Family Provider Nurse Practitioner Family; PCP Nurse Practitioner Family
DX: J18.9 Pneumonia, unspecified organism (principal)
CPT/HCPCS: 36591; 74022; 74177; 80048; 81003; 82962; 84484; 85025; 96361; 96374; 96375; 99285; J2405; J3010; Q9967

== ENCOUNTER 2017-08-15 02:05 | Emergency (ER) | payer MEDICARE, SELFPAY ==
--- NOTE | 2017-08-15 02:08 | DI.CT.S_ITS ---
PROCEDURE: CT HEAD/BRAIN WO CON INDICATIONS: unresponsive, cerebrovascular accident TECHNIQUE: Noncontrast 4.5 mm thick angled axial sections acquired from the foramen magnum to the vertex, with coronal and sagittal reformats. For radiation dose reduction, the following was used: automated exposure control, adjustment of mA and/or kV according to patient size. COMPARISON: None. FINDINGS: Preliminary report by caustic cresylate shift superintendent radiology Image quality: Excellent. CSF spaces: Basal cisterns are patent. No extra-axial fluid collections. The ventricles are symmetric in size and shape. Brain: A large, acute intra-axial hemorrhage is evident involving the left frontal/parietal lobes, estimated at 6.0 x 9.8 cm in diameter by 5 cm craniocaudal, occupying approximately 2/3 of the left cerebral volume. The right midline shift is estimated at 1.0-1.8 CM. There is surrounding vasogenic edema. Blood/fluid levels are present in the posterior aspect of the hemorrhage. No uncal herniation is seen however there is mass displacement of the brainstem and marked compression of the ventricles. There is intracranial internal carotid artery atherosclerosis. Skull and face: Calvarium and visualized facial bones appear intact, without suspicious lesions. Sinuses: Visualized sinuses and mastoids are clear. IMPRESSION: 1. Large acute left cerebral hemorrhage with mass effect. Findings are concordant with the preliminary report. Dictated by: Eulogio Sr M.D. on 08/15/2017 at 8:07 Approved by: Eulogio Sr M.D. on 08/15/2017 at 8:17
--- NOTE | 2017-08-15 02:44 | ED.AMS ---
HPI - Altered Mental Status General Chief Complaint: Altered Mental Status Stated Complaint: Possible Stroke Time Seen by Provider: 08/15/17 02:08 Source: family and EMS Mode of arrival: EMS Limitations: other (Intubated) History of Present Illness HPI narrative: Patient is a 72-year-old female whose last known normal was at 9:30 a.m. or 10:00 p.m. last evening. Her found her unresponsive in bed around 130. She has a new diagnosis of metastatic pancreatic cancer. She was also started on Lovenox injection for DVT. She was found foaming at the mouth unresponsive. She was intubated on scene with etomidate and succinylcholine. MD complaint: decreased responsiveness Context: cancer Related Data Home Medications Medication Instructions Recorded Confirmed hydrochlorothiazide 50 mg PO Q DAY #0 12/17/11 07/24/17 calcium carbonate-vitamin D3 1 cap PO QPM 06/30/17 07/24/17 [Calcium 600 + D(3)] calcium carbonate-vitamin D3 2 cap PO QDAY 06/30/17 07/24/17 [Calcium 600 + D(3)] cholecalciferol (vitamin D3) 2,000 unit PO QPM 06/30/17 07/24/17 [Vitamin D3] omeprazole 20 mg PO BID 06/30/17 07/24/17 simvastatin 20 mg PO QPM 06/30/17 07/24/17 sulfasalazine 2 tab PO BID 06/30/17 07/24/17 potassium chloride 10 meq PO DAILY 07/24/17 07/24/17 Previous Rx's Medication Instructions Recorded amoxicillin-pot clavulanate 1 tab PO BID #20 tab 08/01/17 [Augmentin] hydrocodone-acetaminophen 1 tab PO Q4-6H PRN #14 tab 08/01/17 methocarbamol [Robaxin] 500 mg PO Q6H PRN #14 tab 08/01/17 Allergies Allergy/AdvReac Type Severity Reaction Status Date / Time oxycodone AdvReac Verified 07/24/17 17:32 unknown antibiotic AdvReac Uncoded 07/24/17 17:32 Review of Systems Review of Systems due to endotracheal tube Exam Initial Vital Signs Initial Vital Signs: Vital Signs Pulse Rate 87 08/15/17 02:50 Respiratory Rate 25 H 08/15/17 02:50 Const General: patient mechanically ventilated HENMT Head: normal to inspection and normocephalic Eyes Pupils: dilated bilaterally and fixed bilaterally Neck Neck: trachea midline Resp Effort & Inspection: symmetric chest movement Auscultation: clear to auscultation bilaterally Cardio Rhythm: regular rhythm Heart Sounds: S1 normal and S2 normal GI Palpation: soft, No firm and No rigid Auscultation: normal bowel sounds Skin General: ecchymosis (on right arm and multiple areas on abdomen) Neuro Comatose Patient: no decerebrate rigidity, no decorticate rigidity and doll's eye reflex absent Course Orders Ordered: ED Orders 08/15/17 02:08 CT head/brain w con Stat EKG-12 Lead Stat Discontinued Medications Sodium Chloride (Normal Saline 0.9%) 1,000 mls @ 150 mls/hr IV CONT NILESH Lorazepam (Ativan) 1 mg IV NOW ONE Stop: 08/15/17 03:23 Last Admin: 08/15/17 03:30 Dose: 1 mg Morphine Sulfate (Morphine) 2 mg IV NOW ONE Stop: 08/15/17 02:43 Last Admin: 08/15/17 02:45 Dose: 2 mg Morphine Sulfate (Morphine Sulfate) 2 mg IV NOW ONE Stop: 08/15/17 02:56 Last Admin: 08/15/17 02:58 Dose: 2 mg Scopolamine (Transderm-Scop) 1 patch TOP NOW ONE Stop: 08/15/17 02:45 Vital Signs - 8 hr 08/15/17 02:50 08/15/17 03:03 Pulse Rate 87 87 Respiratory Rate 25 H 25 H Blood Pressure 201/110 H Pulse Oximetry 95 MDM - Altered Mental Status Imaging Data CT scan - head: Radiologist's impression: assistant shift supervisor report: Large acute hemorrhage within left frontal lobe extending into temporal lobe. This is an estimated measures up to 4.7 x 6.1 x 4.7 cm. Extensive adjacent edema. Mass effect with left to right shift of 1.6 cm. Sub falcine herniation. Compression of the upper brainstem. [facility] Narrative Medical decision making narrative: Long discussion with . Patient would need to go to [place] [facility] for emergent neurosurgery intervention. At this time her wishes were no extreme measures. He would like to withdraw care and make her comfort measures only. She has metastatic pancreatic cancer which has progressed very quickly over the last month, now with massive intracranial hemorrhage with signs of herniation. Patient removed from ventilator and ET tube removed. Monitors turned off. at the patient's side. She is given all morphine Ativan and scopolamine patch to help with comfort care. She does have a significant amount of secretions. 4:30 a.m. I was just called into the room has been says that she has passed. Pupils are fixed and dilated no spontaneous respirations no pulse, no heart rate heard Time of : 4:30 a.m. Wedding ring and right ring finger ring have been removed as and given to . [facility] have been notified. Dr. Isaac (PCP) notified Discharge Plan Departure Patient Disposition: Clinical Impression: Acute intracranial hemorrhage Discharge Date/Time: 08/15/17 05:45 Interventions: ED Discharge Assessment Last Done: 08/15/17 06:09
[2017-08-15] MEDS: MORPHINE 2 MG/ML INJ IV (02:45)
[2017-08-15 02:50] VITALS: PULSE 87; RESP 25; O2SAT 88
--- NOTE | 2017-08-15 02:52 | ED_ITS ---
HPI - Altered Mental Status General Chief Complaint: Altered Mental Status Stated Complaint: Possible Stroke Time Seen by Provider: 08/15/17 02:08 Source: family and EMS Mode of arrival: EMS Limitations: other (Intubated) History of Present Illness HPI narrative: Patient is a 72-year-old female whose last known normal was at 9: 30 a.m. or 10:00 p.m. last evening. Her found her unresponsive in bed around 130. She has a new diagnosis of metastatic pancreatic cancer. She was also started on Lovenox injection for DVT. She was found foaming at the mouth unresponsive. She was intubated on scene with etomidate and succinylcholine. MD complaint: decreased responsiveness Context: cancer Related Data Home Medications Medication Instructions Recorded Confirmed hydrochlorothiazide 50 mg PO Q DAY #0 12/17/11 07/24/17 calcium carbonate-vitamin D3 1 cap PO QPM 06/30/17 07/24/17 [Calcium 600 + D(3)] calcium carbonate-vitamin D3 2 cap PO QDAY 06/30/17 07/24/17 [Calcium 600 + D(3)] cholecalciferol (vitamin D3) 2,000 unit PO QPM 06/30/17 07/24/17 [Vitamin D3] omeprazole 20 mg PO BID 06/30/17 07/24/17 simvastatin 20 mg PO QPM 06/30/17 07/24/17 sulfasalazine 2 tab PO BID 06/30/17 07/24/17 potassium chloride 10 meq PO DAILY 07/24/17 07/24/17 Previous Rx's Medication Instructions Recorded amoxicillin-pot clavulanate 1 tab PO BID #20 tab 08/01/17 [Augmentin] hydrocodone-acetaminophen 1 tab PO Q4-6H PRN #14 tab 08/01/17 methocarbamol [Robaxin] 500 mg PO Q6H PRN #14 tab 08/01/17 Allergies Allergy/AdvReac Type Severity Reaction Status Date / Time oxycodone AdvReac Verified 07/24/17 17:32 unknown antibiotic AdvReac Uncoded 07/24/17 17:32 Review of Systems Review of Systems due to endotracheal tube Exam Initial Vital Signs Initial Vital Signs: Vital Signs Pulse Rate 87 08/15/17 02:50 Respiratory Rate 25 H 08/15/17 02:50 Const General: patient mechanically ventilated HENMT Head: normal to inspection and normocephalic Eyes Pupils: dilated bilaterally and fixed bilaterally Neck Neck: trachea midline Resp Effort & Inspection: symmetric chest movement Auscultation: clear to auscultation bilaterally Cardio Rhythm: regular rhythm Heart Sounds: S1 normal and S2 normal GI Palpation: soft, No firm and No rigid Auscultation: normal bowel sounds Skin General: ecchymosis (on right arm and multiple areas on abdomen) Neuro Comatose Patient: no decerebrate rigidity, no decorticate rigidity and doll's eye reflex absent Course Orders Ordered: ED Orders 08/15/17 02:08 CT head/brain w con Stat EKG-12 Lead Stat Discontinued Medications Sodium Chloride (Normal Saline 0.9%) 1,000 mls @ 150 mls/hr IV CONT NILESH Lorazepam (Ativan) 1 mg IV NOW ONE Stop: 08/15/17 03:23 Last Admin: 08/15/17 03:30 Dose: 1 mg Morphine Sulfate (Morphine) 2 mg IV NOW ONE Stop: 08/15/17 02:43 Last Admin: 08/15/17 02:45 Dose: 2 mg Morphine Sulfate (Morphine Sulfate) 2 mg IV NOW ONE Stop: 08/15/17 02:56 Last Admin: 08/15/17 02:58 Dose: 2 mg Scopolamine (Transderm-Scop) 1 patch TOP NOW ONE Stop: 08/15/17 02:45 Vital Signs - 8 hr 08/15/17 02:50 08/15/17 03:03 Pulse Rate 87 87 Respiratory Rate 25 H 25 H Blood Pressure 201/110 H Pulse Oximetry 95 MDM - Altered Mental Status Imaging Data CT scan - head: 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 This is an estimated measures up to 4.7 x 6.1 x 4.7 cm. Extensive adjacent edema. Mass effect with left to right shift of 1.6 cm. Sub falcine herniation. Compression of the upper brainstem. [facility] Narrative Medical decision making narrative: Long discussion with . Patient would need to go to [place] on for emergent neurosurgery intervention. At this time her wishes were no extreme measures. He would like to withdraw care and make her comfort measures only. She has metastatic pancreatic cancer which has progressed very quickly over the last month, now with massive intracranial hemorrhage with signs of herniation. Patient removed from ventilator and ET tube removed. Monitors turned off. at the patient's side. She is given all morphine Ativan and scopolamine patch to help with comfort care. She does have a significant amount of secretions. 4:30 a.m. I was just called into the room has been says that she has passed. Pupils are fixed and dilated no spontaneous respirations no pulse, no heart rate heard Time of : 4:30 a.m. Wedding ring and right ring finger ring have been removed as and given to . [facility] have been notified. Dr. Isaac (PCP) notified Discharge Plan Departure Patient Disposition: Clinical Impression: Acute intracranial hemorrhage Discharge Date/Time: 08/15/17 05:45 Interventions: ED Discharge Assessment Last Done: 08/15/17 06:09
[2017-08-15 02:58] VITALS: BP 201/120; PULSE 94; RESP 25; O2SAT 88
[2017-08-15] MEDS: MORPHINE 5 MG/ML INJ 2 MG IV (02:58)
[2017-08-15 03:03] VITALS: BP 201/110; PULSE 87; RESP 25; O2SAT 95
--- NOTE | 2017-08-15 03:07 | PC.NURSE ---
SHE WAS REPORTED LAST KNOWN NORMAL AT APPROX.2129 AND THEN FOUND UNRESPONSIVE AT APPROX.1 AM BY HER SPOUSE.SHE WAS PARALYZED IN FIELD RSI AND THEN INTUBATED.TO CT AT 021.ARRIVED HERE AT 0209.GODD BILATERAL CHEST RISE WITH BAGGING VIA ETT.SR ON CM IN CT SCAN AND HERE IN E.D.HER SPOUSE ARRIVED AT 0233 AND HE AND MADE DECISION TO EXTUBATE AND LET NATURE TAKE IT'S COURSE WITH NO FURTHER TREATMENT.HE DECLINED MY OFFER TO CALL CHILDREN OR HIS CLERGY.I OFFERED HIM SUPPORT AND IT WAS TAKEN WELL.
[2017-08-15] MEDS: LORazepam 2 MG/ML SYRINGE 1 MG IV (03:30)
--- NOTE | 2017-08-15 05:07 | PC.NURSE ---
SHE WAS PRONOUNCED AT [address] PIERRE.HER ,LUZ MARIA,WAS AT HER SIDE.HE TOOK TWO RINGS SHE HAD ON HOME WITH HIM.
--- NOTE | 2017-08-15 05:59 | PC.NURSE ---
After speaking with ogwith tissue donation,I rinsed her eyes with normal saline and taped them shut with paper tape and then elevated the head of her bed.
== END 2017-08-15 05:45 | disposition expired ==
PROVIDERS: Emergency Provider Emergency Medicine; Family Provider Nurse Practitioner Family; PCP Nurse Practitioner Family
DX: I62.9 Nontraumatic intracranial hemorrhage, unspecified (principal)
CPT/HCPCS: 70450; 70460; 93005; 93010; 94770; 94799; 96374; 96375; 99282; 99285; J2060; J2270